=== PATIENT | female | born 1965 | race African-American/Black ===

== ENCOUNTER 2018-03-22 00:52 | Emergency (ER) | payer BC, MEDICAID ==
[~2018-03-22] VITALS: Ht 165.1 cm; Wt 94.8 kg
[~2018-03-22 00:52] MED LIST: COLACE100 MG ORAL; KEFLEX500 MG ORAL; NORCO 5-325 TA1 EACH ORAL; OMEPRAZOLE40 M1 ORAL; ZOFRAN4 MG ORAL
[2018-03-22 01:25] VITALS: BP 156/86
[2018-03-22] MEDS ORDERED: IBUPROFEN600 MG ORAL (01:52)
[2018-03-22] MEDS ORDERED: CLINDAMYCIN HC300 MG ORAL (01:52)
[2018-03-22] MEDS ORDERED: HYDROCODON-ACE1 EA15 ORAL (01:52)
--- NOTE | 2018-03-22 01:53 | Emergency Room Report ---
History of Present Illness General Chief Complaint: Skin Rash/Abscess Source: Patient Present Illness HPI Is a 53-year-old female with history of axilla abscess in the past. She presents with swelling to the axilla for the last couple days. One of them drained already. Denies any fever chills. Pain is 9 out of 10. Worse with movement and palpation. No nausea no vomiting. No fever chills. Allergies: Coded Allergies: ASPIRIN (Unverified Allergy, Unknown, 11/20/14) ERYTHROMYCIN BASE (Unverified Allergy, Unknown, 11/20/14) PENICILLINS (Unverified Allergy, Unknown, 11/20/14) SULFA (SULFONAMIDE ANTIBIOTICS) (Unverified Allergy, Unknown, 11/20/14) Patient History Past Medical History: see triage record, old chart reviewed Past Surgical History: other Pertinent Family History: none Social History: Denies: smoking Last Menstrual Period: 2 MONTHS AGO Now: No Immunizations: other Reviewed Nursing Documentation: PMH: Agreed; PSxH: Agreed Nursing Documentation-PMH Hx Hypertension: Yes Hx Asthma: Yes Review of Systems Eye: Denies: eye pain, blurred vision ENT: Denies: ear pain, nose congestion, throat swelling Respiratory: Denies: cough, shortness of breath Cardiovascular: Denies: chest pain, palpitations Gastrointestinal: Denies: abdominal pain, diarrhea, nausea, vomiting Musculoskeletal: Denies: back pain, joint pain Skin: Denies: rash Neurological: Denies: headache, numbness Endocrine: Denies: increased thirst, increased urine Hematologic/Lymphatic: Denies: easy bruising All Other Systems: negative except mentioned in HPI Physical Exam Vital Signs Date Time Temp Pulse Resp B/P (MAP) Pulse Ox O2 Delivery O2 Flow Rate FiO2 03/22/18 01:07 98.0 71 16 156/86 100 Room Air 98.1 vitals with high blood pressure Sp02 EP Interpretation: reviewed, normal General Appearance: well appearing, no apparent distress, alert Head: normocephalic, atraumatic Eyes: bilateral eye PERRL, bilateral eye EOMI ENT: hearing grossly normal, normal pharynx Neck: full range of motion, supple, no meningismus Respiratory: chest non-tender, lungs clear, normal breath sounds Cardiovascular #1: regular rate, rhythm, no murmur Gastrointestinal: normal bowel sounds, non tender, no mass, no organomegaly, no bruit, non-distended Musculoskeletal: back normal, gait/station normal, normal range of motion, other - Left axilla: There is to fluctuant tender area. Each of them measure about 2 cm. Rt arm with tenderness along the tricep area. FROM Psychiatric: mood/affect normal Skin: warm/dry Procedures Incision and Drainage Incision and Drainage : Consent: Verbal Site: left axilla Blade Size: 11 I & D Procedure: betadine prep, sterile drapes applied, sterile dressing applied Wound Location: axilla Anesthesia: 1% Lidocaine Volume Anesthetic (ccs): 5 Patient Tolerated: Well Complications: None Progress Area cleaned with chlorhexidine and then Betadine. Local anesthetic 1% lidocaine. A made incision with scalpel. Purulent discharge expressed and then thick cottage cheesy material expressed. I try to remove part of the. Patient tolerated procedure without a problem. Medical Decision Making Diagnostic Impression: Primary Impression: Sebaceous cyst of left axilla Additional Impression: Infected sebaceous cyst ER Course patient presents with an infected sebaceous cyst. I&D done. No evidence of deep infection. We'll discharge home. Last Vital Signs Date Time Temp Pulse Resp B/P (MAP) Pulse Ox O2 Delivery O2 Flow Rate FiO2 03/22/18 01:25 98.1 71 16 156/86 100 Room Air 98.1 Status: improved Disposition: HOME, SELF-CARE Condition: Stable Scripts Ibuprofen* (MOTRIN*) 600 Mg Tablet 600 MG ORAL THREE TIMES A DAY, #30 TAB 0 Refills Prov: DONALDO HOUSER M.D. 03/22/18 Hydrocodone/Acetaminophen 5-325* (HYDROCODONE/ACETAMINOPHEN 5-325*) 1 Each Tablet 1 TAB ORAL Q6H PRN for For Pain, #20 TAB 0 Refills Prov: DONALDO HOUSER M.D. 03/22/18 Clindamycin Hcl (CLINDAMYCIN HCL) 300 Mg Capsule 300 MG ORAL THREE TIMES A DAY, #21 CAP Prov: DONALDO HOUSER M.D. 03/22/18 Referrals: NON PHYSICIAN (PCP) Additional Instructions: Follow-up with your DrAugusto in 2 to 3 days for recheck. Return if symptom worsen. Clean area with hydrogen peroxide. Then apply antibiotic ointment. DONALDO HOUSER M.D. Mar 22, 2018 01:53
[2018-03-22] MEDS ORDERED: Norco 5mg/325mg tab ORAL ONE (02:00)
[2018-03-22 02:08] VITALS: BP 156/86
== END 2018-03-22 02:08 | disposition home or self-care (01) ==
LOC: EMR 01:09
DX: L72.3 Sebaceous cyst (principal); J45.909 Unspecified asthma, uncomplicated; I10 Essential (primary) hypertension; Z88.6 Allergy status to analgesic agent; Z88.0 Allergy status to penicillin; Z88.1 Allergy status to other antibiotic agents; Z88.2 Allergy status to sulfonamides
CPT/HCPCS: 10060; 99283

== ENCOUNTER → 2019-10-16 | Emergency (ER) | payer MEDICAID ==
[~2019-10-16] VITALS: Ht 165.1 cm; Wt 98.9 kg
[~2019-10-16] MED LIST changes: +ALBUTEROL SULF8.5 GM INH; +CLINDAMYCIN HC300 MG ORAL; +CORTISPORIN EAR10 ML RIGHT EAR; +Clindamycin 150mg cap ONE; +Clindamycin 150mg cap ORAL SCH; +GUAIFENESIN-CO118 M1 ORAL; +HYDROCHLOROTH12.5 MG ORAL; +HYDROCHLOROTHIA25 MG ORAL; +HYDROCODON-ACE1 EA15 ORAL; +IBUPROFEN600 MG ORAL; +NORVASC5 MG ORAL; +hydroCHLOROthiazide 25mg cap ORAL ONE
--- NOTE | 2019-10-16 22:09 | NUR ---
ED Nurse Note: Walk-in patient with complaints of sore throat x 2 days. Patient reports pain level of 7/10 described as scratchy/burning. Patient reports history of hypertension, asthma, and hypothyroid.
[2019-10-16 22:12] VITALS: BP 186/101
--- NOTE | 2019-10-16 22:13 | Emergency Room Report ---
History of Present Illness General Chief Complaint: Sore Throat Source: Patient Present Illness HPI Patient presents with pain in her R ear and sore throat. She has also been wheezing -and has no albuterol. The pain in her ear and throat are rated 7/10, somewhat burning and aching. Worse with swallowing. No nausea, vomiting or diarrhea. No dysuria. No lymphadenopathy. No rashes. No chest pain. Able to swallow without difficulty. LNMP 3 weeks The patient recently changed her health insurance. This is the reason she does not have an albuterol inhaler. In addition she has been unable to take her blood pressure medications. COVID-19 risk:Travel to affect: No Has patient experienced castillo: No Allergies: Coded Allergies: LISINOPRIL (Verified Allergy, Severe, 10/16/19) ASPIRIN (Unverified Allergy, Unknown, 11/20/14) ERYTHROMYCIN BASE (Unverified Allergy, Unknown, 11/20/14) PENICILLINS (Unverified Allergy, Unknown, 11/20/14) SULFA (SULFONAMIDE ANTIBIOTICS) (Unverified Allergy, Unknown, 11/20/14) Patient History Past Medical History: see triage record Social History: Denies: smoking Social History Narrative [facility] Now: No Reviewed Nursing Documentation: PMH: Agreed; PSxH: Agreed Nursing Documentation-PMH Hx Hypertension: Yes Hx Asthma: Yes Review of Systems All Other Systems: negative except mentioned in HPI Physical Exam Vital Signs Date Time Temp Pulse Resp B/P (MAP) Pulse Ox O2 Delivery O2 Flow Rate FiO2 10/16/19 21:48 97.5 61 18 186/101 (129) 99 Room Air Sp02 EP Interpretation: reviewed, normal General Appearance: well appearing, no apparent distress, GCS 15 Head: normocephalic Eyes: bilateral eye normal inspection, bilateral eye PERRL, bilateral eye EOMI ENT: moist mucus membranes, pharyngeal erythema, other - Right TM with fluid and erythema, left is normal. No exudates Neck: supple Respiratory: chest non-tender, no respiratory distress, wheezing - Minimal end expiratory Cardiovascular #1: regular rate, rhythm Cardiovascular #2: 2+ radial (R) Gastrointestinal: normal inspection, normal bowel sounds, non tender, no mass, non-distended Musculoskeletal: back normal, normal range of motion, gait/station normal Neurologic: alert, oriented x3, grossly normal Psychiatric: mood/affect normal Skin: no rash, warm/dry Medical Decision Making Diagnostic Impression: Primary Impression: Otitis media Qualified Codes: H66.001 - Acute suppurative otitis media without spontaneous rupture of ear drum, right ear Additional Impressions: Bronchospasm HTN (hypertension) Qualified Codes: I10 - Essential (primary) hypertension ER Course Patient presents with findings consistent with otitis media with some bronchospasm. Antibiotics are indicated. In addition the patient will need bronchodilators. She is in no distress at this time and breathing treatments are not indicated emergently. In addition she is hypertensive. Clindamycin, Tylenol and hydrochlorothiazide ordered. Discussed treatment plan with patient. She is improved at this time. Patient stable for outpatient observation and treatment. Last Vital Signs Date Time Temp Pulse Resp B/P (MAP) Pulse Ox O2 Delivery O2 Flow Rate FiO2 10/16/19 22:12 97.5 82 18 186/101 99 Room Air Status: improved Disposition: HOME, SELF-CARE Condition: Improved Scripts Hydrochlorothiazide* (HYDROCHLOROTHIAZIDE*) 25 Mg Tablet 25 MG ORAL DAILY, #30 TAB Prov: Pb Howell MD 10/16/19 Clindamycin Hcl (CLINDAMYCIN HCL) 300 Mg Capsule 300 MG ORAL TID, #20 CAP Prov: Pb Hwoell MD 10/16/19 Neomycin/Polymyxin B Sulf/Hc* (CORTISPORIN EAR SOLUTION*) 10 Ml Solution 3 DROP RIGHT EAR QID, #10 ML 0 Refills Prov: Pb Howell MD 10/16/19 Guaifenesin/Codeine Phos* (ROBITUSSIN AC*) 118 Ml Liquid 5 ML ORAL Q6H PRN for For Cough, #60 ML 0 Refills Prov: Pb Howell MD 10/16/19 Albuterol Sulfate* (ALBUTEROL SULFATE MDI*) 8.5 Gm Hfa.aer.ad 2 PUFF INH Q6H, #1 EA 0 Refills Prov: Pb Howell MD 10/16/19 Referrals: NOT CHOSEN IPA/,REFERRING (PCP) Pb Howell MD Oct 16, 2019 22:13
== END | disposition home or self-care (01) ==
LOC: EMR 22:07
DX: H66.001 Acute suppurative otitis media without spontaneous rupture of ear drum, right ear (principal); J98.01 Acute bronchospasm; I10 Essential (primary) hypertension; Z88.6 Allergy status to analgesic agent; Z88.2 Allergy status to sulfonamides; Z88.0 Allergy status to penicillin
CPT/HCPCS: 99282